=== PATIENT | female | born 1985 | race Caucasian/White ===

== ENCOUNTER 2017-03-24 13:20 | Outpatient (CLI) | payer OTHER ==
[~2017-03-24] VITALS: Ht 162.6 cm; Wt 103.1 kg
[~2017-03-24 13:20] MED LIST: CEPH-443 PO; DICY20TA59 PO
[2017-03-24 13:37] VITALS: BP 130/64; PULSE 110; RESP 18
[2017-03-24] MEDS ORDERED: FERR236T PO (13:57)
[2017-03-24] MEDS ORDERED: PRENAT PO (13:57)
[2017-03-24] MEDS ORDERED: CALC300T4 PO (13:58)
[2017-03-24] MEDS ORDERED: CALC600T11 PO (13:58)
[2017-03-24 15:28] LABS: ADD UMIC NO; UR ASCORBIC ACID NEGATIVE (NEGATIVE); UR BACTERIA FEW /HPF (NONE SEEN); UR BILIRUBIN (Dip) NEGATIVE (NEGATIVE); UR BLOOD (Dip) NEGATIVE (NEGATIVE); UR BUDDING YEAST FEW /HPF (NONE SEEN); UR CLARITY SLIGHTLY CLOUDY (CLEAR); UR COLOR YELLOW (YELLOW); UR GLUCOSE (Dip) NEGATIVE (NEGATIVE); UR KETONES (Dip) NEGATIVE (NEGATIVE); UR LEUKOCYTE ESTERASE (Dip) NEGATIVE Leu/ul (NEGATIVE); UR MUCUS FEW /HPF (NONE SEEN); UR NITRITE (Dip) NEGATIVE (NEGATIVE); UR RBC 1 /HPF (0-5); UR SPECIFIC GRAVITY (Dip) 1.014 (1.003-1.030); UR SQUAMOUS EPITHELIAL CELL FEW /HPF (FEW); UR TOTAL PROTEIN (Dip) NEGATIVE (NEGATIVE); UR UROBILINOGEN (Dip) NEGATIVE (NEGATIVE)
--- NOTE | 2017-03-24 16:49 | RADRPT ---
PROCEDURE: US OB. CLINICAL INDICATION: Pelvic pain. Possible spontaneous rupture of membranes TECHNIQUE: Multiple sonographic images of the pelvis were obtained. The images were reviewed on a PACS workstation. COMPARISON: 09/29/2016 FINDINGS: There is a single viable intrauterine gestation. Cardiac activity is present with 126 beats per min quileute. There is a vertex presentation. Measurements were made in order to determine age. The results are as follows: BPD =9 cm HC =32.6 cm AC =31.4 cm FL =6.3 cm. Estimated gestational age of approximately 35 weeks and 2 days. The estimated date of delivery is 04/26/2017. The EFW = 2532 grams. The placenta is anterior. There is no evidence for an abruption or placenta previa. ELEAZAR is 12.2 cm. There are no adnexal masses. The cervix is closed measures 4.1 cm in length. IMPRESSION: Single live intrauterine with an estimated gestational age of 35 weeks and 2 days. RPTAT: HPNM Physician Shaggy Date Time Electronically viewed and signed by Physician Shaggy on 03/24/2017 16:48 /
--- NOTE | 2017-03-24 18:59 | TRIAGE ---
OB Triage Datetime Report Generated by CPN: 03/24/2017 18:59 Datetime: 03/24/2017 18:27 Nitrazine: Negative Datetime: 03/24/2017 17:43 Labor Evaluation Frequency: NONE Monitor Mode: External Pattern: Normal: <= 5 Contractions in 10 Minutes Resting Tone [place]: Relaxed Contraction Comments: PT OFF MONITOR TO AMBULATE x30 MINUTES Monitor Mode: External US Comments: FHTS OFF MONITOR DUE TO PT MOVEMENT; PT TAKEN OFF MONITOR TO AMBULATE [id number]. Pain Assessment Pain Scale: 0 Pain Presence: None/Denies Pain Type: N/A Datetime: 03/24/2017 17:00 Monitor Mode: External Pattern: Normal: <= 5 Contractions in 10 Minutes Resting Tone [place]: Relaxed Contraction Comments: NONE Heart Rate FHR Baseline Rate: 130 FHR Baseline Changes: No Baseline Change Variability: Moderate 6-25 bpm Accelerations: 15X15 Pain Assessment Pain Scale: 0 Pain Presence: None/Denies Pain Type: N/A Datetime: 03/24/2017 16:04 ROM Test Kit: Negative Datetime: 03/24/2017 16:00 Labor Evaluation Frequency: NONE Monitor Mode: External Pattern: Normal: <= 5 Contractions in 10 Minutes Resting Tone [place]: Relaxed Heart Rate FHR Baseline Rate: 130 Monitor Mode: External US FHR Baseline Changes: No Baseline Change Variability: Moderate 6-25 bpm Accelerations: 15X15 Decelerations: Variable Pain Assessment Pain Scale: 0 Pain Presence: None/Denies Pain Type: N/A Datetime: 03/24/2017 15:00 Labor Evaluation Frequency: NONE Monitor Mode: External Pattern: Normal: <= 5 Contractions in 10 Minutes Resting Tone [place]: Relaxed Heart Rate FHR Baseline Rate: 130 FHR Baseline Changes: No Baseline Change Variability: Moderate 6-25 bpm Accelerations: 15X15 Decelerations: None Category: Category I Datetime: 03/24/2017 14:52 Vaginal Exam Pool: Negative Datetime: 03/24/2017 14:00 Labor Evaluation Frequency: NONE Monitor Mode: External Pattern: Normal: <= 5 Contractions in 10 Minutes Resting Tone [place]: Relaxed Heart Rate FHR Baseline Rate: 135 FHR Baseline Changes: No Baseline Change Variability: Moderate 6-25 bpm Accelerations: 15X15 Decelerations: None Datetime: 03/24/2017 13:41 Maternal Assessment Level of Consciousness: Fully Conscious DTR's/Clonus: DTRs 2+; No Clonus Headache: Denies Blurred Vision: No Respiratory Effort: Unlabored; Regular Rhythm; Equal Expansion Breath Sounds, Left: Clear and Equal Breath Sounds, Right: Clear and Equal Nausea/Vomiting: Denies RUQ Epigastric Pain: Denies Lower Extremities Edema: Bilateral Lower Extremities Degree: 1+ Upper Extremities Edema: None Degree: None Facial Edema: None Temperature Route: Oral Fall Risk Assessment History of Falling: (0) No Secondary Diagnosis: (0) No Ambulatory Aid: (0) Bedrest/Nurse Assist IV Therapy: (0) No Gait: (0) Normal/Bedrest/Immobile Mental Status: (0) Oriented to Own Ability Fall Score: 0 Fall Risk Score Definition: No Risk: No action required Pain Assessment Pain Scale: 4 Pain Presence: Intermittent Pain Type: Cramping; Contraction Pain Location: Abdomen; Back Datetime: 03/24/2017 13:26 Time of Arrival: 03/24/2017 13:19 EGA: 33.1 Arrived By: Wheelchair Arrived From: Emergency Dept Chief Complaint: PROM @0730, CONTRACTIONS FROM 1000 Movement: Present Contractions: Occasional (Annotations: Data stored by CPN on behalf of user) Time Contractions Began: 03/24/2017 10:00 Contractions: NOT FREQUENT Rupture of Membranes: Unsure Vaginal Bleeding: None Vaginal Discharge: Denies Recent Sexual Intercouse: Yes Abdominal Trauma: Not Applicable Patient Complaints: Contractions Additional Patient Complaints: YESTERDAY - PICKED UP 3 YO DAUGHTER Time Provider Notified: 03/24/2017 14:12 Provider Notified: DR. CATES Initial Plan: EFM x2, STERILE SPEC TO CHECK FOR POOLING, ROM+, U/A, EFW, ELEAZAR, CERVICAL LENGTH
--- NOTE | 2017-04-19 21:38 | QN ---
Documentation Comment Diagnoses: 1. , Not Delivered 2. Leakage of Fluid 3. Threatened Labor. SHELLY CATES MD Apr 19, 2017 21:38
== END 2017-03-24 18:46 | disposition home or self-care (01) ==
LOC: OBT 13:20 → L-D 13:23 → OBT 18:46
PROVIDERS: ATTEND Obstetrics & Gynecology
DX: O41.93X0 Disorder of amniotic fluid and membranes, unspecified, third trimester, not applicable or unspecified (principal); O47.03 False labor before 37 completed weeks of gestation, third trimester; Z3A.33 33 weeks gestation of pregnancy; Z37.9 Outcome of delivery, unspecified
CPT/HCPCS: 76815; 76817; 81001; 84112; 87086; Z7500; 81003; G0463

== ENCOUNTER 2019-03-07 13:23 | Emergency (ER) | payer SELFPAY ==
[~2019-03-07] VITALS: Wt 71.0 kg
[~2019-03-07 13:23] MED LIST changes: +CALC300T4 PO; +CALC600T24 PO; -CEPH-443 PO; -DICY20TA59 PO; +FERR236T3 PO; +PRENAT PO
[2019-03-07 13:33] VITALS: BP 165/83; PULSE 78; RESP 18
[2019-03-07] MEDS ORDERED: CIPR500T4 PO (18:26)
[2019-03-07] MEDS ORDERED: NAPR-985 PO (18:46)
[2019-03-07] MEDS ORDERED: PSEU-79 PO (18:46)
[2019-03-07] MEDS ORDERED: MED4DP PO (18:46)
--- NOTE | 2019-03-07 23:11 | ERD ---
ER Documentation Chief Complaint Chief Complaint chest wall pain, generalized body pain on and off 1 year HPI 33-year-old female presenting with generalized body pain and malaise. She states over the last year she is been feeling tired and just does not feel right. She states she has some occasional congestion she also has some leg pain associated with her back pain. She denies any recent traumatic falls or injuries. Denies any vomiting. Denies changes in urination or bowel movement. Denies fevers. Denies other medical problems. NKDA. Surgical history denies. Social history denies. Up-to-date on vaccinations ROS All systems reviewed and are negative except as per history of present illness. Medications Home Meds Active Scripts Naproxen* (Naprosyn*) 500 Mg Tablet, 500 MG PO BID PRN for PAIN AND/OR INFLAMMATION, #30 TAB Prov:KANU JASMINE PA-C 03/07/19 Methylprednisolone* (Medrol* DOSE PACK) 4 Mg/Dose-Pack Tab.ds.pk, 4 MG PO . DIRECTED, #30 PACKET Prov:KANU JASMINE PA-C 03/07/19 Pseudoephedrine Hcl* (Suphedrin*) 30 Mg Tablet, 30 MG PO Q6 PRN for CONGESTION, #30 TAB Prov:KANU JASMINE PA-C 03/07/19 Ciprofloxacin Hcl* (Ciprofloxacin Hcl*) 500 Mg Tablet, 500 MG PO BID for 7 Days, TAB Prov:KANU JASMINE PA-C 03/07/19 Reported Medications Calcium Carbonate* (Tums X-Str) 300 Mg Tab.chew, 300 MG PO DAILY PRN for GASTROINTESTINAL UPSET, TAB.CHEW 03/24/17 Calcium Carbonate* (Calcium Carbonate*) 600 MG Ca Tab, 600 MG PO DAILY, TAB 03/24/17 Ferrous Gluconate (Iron) 236 Mg Tablet, 236 MG PO, TAB 03/24/17 Multivit/Min/Fol Ac/Iron/Pren* ( S*) 1 Tab Tab, 1 TAB PO DAILY, TAB 03/24/17 Allergies Allergies: Coded Allergies: No Known Allergies (Verified Allergy, Unknown, 03/03/14) PMhx/Soc Hx Respiratory Disorders: Yes (asthma) Hx Alcohol Use: Yes Hx Substance Use: No Hx Tobacco Use: No FmHx Family History: No diabetes, No coronary disease, No other Physical Exam Vitals Vital Signs Date Temp Pulse Resp B/P (MAP) Pulse Ox O2 O2 Flow FiO2 Time Delivery Rate 03/07/19 98.0 78 18 165/83 99 13:33 (110) Physical Exam GENERAL: The patient is well-appearing, well-nourished, in no acute distress HEENT: Atraumatic. Conjunctivae are pink. Pupils equal, round, and reactive to light. There is no scleral icterus. Tympanic membranes clear bilaterally. Oropharynx clear. NECK: C-spine is soft and supple. There is no meningismus. There is no cervical lymphadenopathy. CHEST: Clear to auscultation bilaterally. There are no rales, wheezes or rhonchi. HEART: Regular rate and rhythm. No murmurs, clicks, rubs or gallops. ABDOMEN:Soft, nontender and nondistended. Good bowel sounds. No rebound or guarding. No gross peritonitis. No gross organomegaly or masses. Result Diagram: 03/07/19 1727 03/07/19 1727 Results 24 hrs Laboratory Tests Test 03/07/19 17:26 03/07/19 17:27 Urine Color YELLOW Urine Clarity SLIGHTLY CLOUDY Urine pH 6.0 Urine Specific [place] 1.028 Urine Ketones NEGATIVE mg/dL Urine Nitrite NEGATIVE mg/dL Urine Bilirubin NEGATIVE mg/dL Urine Urobilinogen NEGATIVE mg/dL Urine Leukocyte Esterase 1+ April/ul Urine Microscopic RBC 169 /HPF Urine Microscopic WBC 6 /HPF Urine Squamous Epithelial Cells FEW /HPF Urine Mucus MANY /HPF Urine Hemoglobin 3+ mg/dL Urine Glucose NEGATIVE mg/dL Urine Total Protein 1+ mg/dl Urine Test NEGATIVE White Blood Count 12.0 10^3/ul Red Blood Count 5.00 10^6/ul Hemoglobin 13.8 g/dl Hematocrit 41.6 % Mean Corpuscular Volume 83.2 fl Mean Corpuscular Hemoglobin 27.6 pg Mean Corpuscular Hemoglobin Concent 33.2 g/dl Red Cell Distribution Width 12.7 % Platelet Count 279 10^3/UL Mean Platelet Volume 10.4 fl Immature Granulocytes % 0.300 % Neutrophils % 68.7 % Lymphocytes % 22.3 % Monocytes % 6.8 % Eosinophils % 1.4 % Basophils % 0.5 % Nucleated Red Blood Cells % 0.0 /100WBC Immature Granulocytes # 0.040 10^3/ul Neutrophils # 8.2 10^3/ul Lymphocytes # 2.7 10^3/ul Monocytes # 0.8 10^3/ul Eosinophils # 0.2 10^3/ul Basophils # 0.1 10^3/ul Nucleated Red Blood Cells # 0.0 10^3/ul Sodium Level 143 mmol/L Potassium Level 3.9 mmol/L Chloride Level 103 mmol/L Carbon Dioxide Level 29 mmol/L Anion Gap 11 Blood Urea Nitrogen 9 mg/dl Creatinine 0.67 mg/dl Est Glomerular Filtrat Rate mL/min > 60 mL/min Glucose Level 90 mg/dl Calcium Level 9.3 mg/dl Total Bilirubin 0.4 mg/dl Direct Bilirubin 0.00 mg/dl Indirect Bilirubin 0.4 mg/dl Aspartate Amino Transf (AST/SGOT) 24 IU/L Alanine Aminotransferase (ALT/SGPT) 29 IU/L Alkaline Phosphatase 72 IU/L Total Protein 8.2 g/dl Albumin 4.6 g/dl Globulin 3.60 g/dl Albumin/Globulin Ratio 1.27 Procedures/MDM ER course: Blood work within normal limits. Urinalysis shows findings consistent with UTI. MDM: 33-year-old female presenting with normal blood work and urinary tract infection findings on urinalysis. Patient is discharged with antibiotics and told to follow-up with primary care within 1 to 2 days for close evaluation. Patient is told if symptoms change or worsen to return immediately to the ER. I have low suspicion for electrolyte abnormality or blood abnormality. Patient is told to have a full physical with her primary doctor to investigate other causes of potential body aches or malaise. All questions answered at discharge Departure Diagnosis: Primary Impression: UTI (urinary tract infection) Condition: Stable Patient Instructions: Understanding Urinary Tract Infections (UTIs) Referrals: [facility] YOU HAVE RECEIVED A MEDICAL SCREENING EXAM AND THE RESULTS INDICATE THAT YOU DO NOT HAVE A CONDITION THAT REQUIRES URGENT TREATMENT IN THE EMERGENCY DEPARTMENT. FURTHER EVALUATION AND TREATMENT OF YOUR CONDITION CAN WAIT UNTIL YOU ARE SEEN IN YOUR DOCTORS OFFICE WITHIN THE NEXT 1-2 DAYS. IT IS YOUR RESPONSIBILITY TO MAKE AN APPOINTMENT FOR FOLOW-UP CARE. IF YOU HAVE A PRIMARY DOCTOR --you should call your primary doctor and schedule an appointment IF YOU DO NOT HAVE A PRIMARY DOCTOR YOU CAN CALL OUR PHYSICIAN REFERRAL HOTLINE AT IF YOU CAN NOT AFFORD TO SEE A PHYSICIAN YOU CAN CHOSE FROM THE FOLLOWING [facility] [address] [facility] [address] [facility] [address] [facility] [address] [facility]. [facility] [phone] [facility]. [facility] [address] Additional Instructions: FOLLOW UP WITH YOUR PRIMARY CARE PHYSICIAN TOMORROW.Return to this facility if you are not improving as expected. KANU JASMINE PA-C Mar 07, 2019 23:11
== END 2019-03-07 19:02 | disposition home or self-care (01) ==
LOC: FTE 13:23
DX: N39.0 Urinary tract infection, site not specified (principal); J45.909 Unspecified asthma, uncomplicated
CPT/HCPCS: 80053; 81001; 84703; 85025; 99283

== ENCOUNTER 2019-03-26 04:51 | Emergency (ER) | payer SELFPAY ==
[~2019-03-26] VITALS: Ht 160 cm; Wt 98.8 kg
[~2019-03-26 04:51] MED LIST changes: +CIPR500T4 PO; +MED4DP PO; +NAPR-985 PO; +PSEU-79 PO
[2019-03-26 04:57] VITALS: BP 125/68; PULSE 87; RESP 19; Ht 160 cm; Wt 98.8 kg
== END 2019-03-26 05:33 | disposition left against medical advice (07) ==
LOC: FTE 04:51
DX: Z53.21 Procedure and treatment not carried out due to patient leaving prior to being seen by health care provider (principal)